=== PATIENT | male | born 1985 | race Caucasian/White ===

== ENCOUNTER 2018-12-31 17:36 | Emergency (ER) | payer OTHER ==
--- NOTE | 2018-12-31 17:59 | EDPHY ---
H & P Stated Complaint: Lightheaded today, friend measured BGL @340 Time Seen by Provider: 12/31/18 17:58 - Personal History Current Tetanus/Diphtheria Vaccine: Yes - Medical/Surgical History Hx Asthma: No Hx Chronic Respiratory Disease: No Hx Diabetes: No Hx Cardiac Disease: No Hx Renal Disease: No Hx Cirrhosis: No Hx Alcoholism: No Hx HIV/AIDS: No Hx Splenectomy or Spleen Trauma: No Other PMH: tonsillectomy - Social History Smoking Status: Never smoked Constitutional: Initial Vital Signs Temperature (C) 37.1 C 12/31/18 17:50 Heart Rate 96 12/31/18 17:50 Respiratory Rate 18 12/31/18 17:50 Blood Pressure 135/91 H 12/31/18 17:50 O2 Sat (%) 95 12/31/18 17:50 O2 Delivery Mode Room Air Allergies/Adverse Reactions: amoxicillin Allergy (Verified 12/31/18 17:50) Home Medications: Medication Instructions Recorded metFORMIN SR [Glucophage XR 500 mg 500 mg PO DAILY@1800 #30 tab.sr 12/31/18 (*)] Medical Decision Making ED Course/Re-evaluation: CHIEF COMPLAINT: Dizzy HISTORY OF PRESENT ILLNESS: The patient is a 33 y/o male complaining of feeling lightheaded and dizzy today. Earlier this week he was on a plane for 30 hours as he was travelling home from [facility]. After the flight he developed back and sternal pain. Today he developed worsening lightheadedness. During the day he took a random blood sugar with a reading of 340. While driving home today he felt like he was going pass out, so he decided to present to the emergency department. No fever, headache, body aches, lightheadedness, chest pain, heart palpitations, shortness of breath, cough, abdominal pain, urinary or bowel complaints, numbness, paresthesias. REVIEW OF SYSTEMS: A comprehensive 10 system review of systems is otherwise negative aside from elements mentioned in the history of present illness and medical decision making. PHYSICAL EXAM: HR, BP, O2 Sat, RR. Temp noted General Appearance: Obese, alert, well hydrated, appropriate, and non-toxic appearing. Head: Atraumatic without scalp tenderness or obvious injury Eyes: Pupils equal, round, reactive to light and accommodation, EOMI, no trauma , no injection. Ears: Clear bilaterally, no perforation, normal landmarks Nose: Atraumatic, no rhinorrhea, clear. Throat: There is no erythema or exudates, no lesions, normal tonsils, mucus membranes moist. Neck: Supple, 2+ carotid upstroke, nontender, no lymphadenopathy. Respiratory: No retractions, no distress, no wheezes, and no accessory muscle use. Lungs are clear to auscultation bilaterally. Cardiovascular: Regular rate and rhythm, no murmurs, rubs, or gallops. Bilateral carotid, radial, dorsalis pedis, and posterior tibial pulses intact. Good capillary refill all extremities. Gastrointestinal: Abdomen is soft, nontender, non-distended, no masses, no rebound, no guarding, no peritoneal signs. Musculoskeletal: Normal active ROM of all extremities, atraumatic. Neurological: Alert, appropriate, and interactive. The patient has normal DTRs and non-focal cranial nerves, motor, sensory, and cerebellar exam. Skin: No rashes, good turgor, no nodules on palpation. Past medical history: Denies Past surgical history: Tonsillectomy Family history: Father has diabetes Social history: Employed, lives in [place], [facility] DIAGNOSTICS/PROCEDURES/CRITICAL CARE TIME: Not indicated. DIFFERENTIAL DIAGNOSIS: The differential diagnosis for the patient's dizziness included but was not limited to new-onset type 2 diabetes, peripheral and central causes of vertigo, orthostatic causes including dehydration, cardiogenic and neurogenic causes, and blood loss. MEDICAL DECISION MAKING: The patient is a 33 y/o male presenting with feeling lightheaded and dizzy today. Earlier this week he was on a plane for 30 hours as he was travelling home from [facility]. After the flight he developed back and sternal pain. Today he developed worsening lightheadedness. During the day he took a random blood sugar with a reading of 340. On exam the patient is obese but has an otherwise normal physical exam. I am concerned he is a new-onset diabetic as he had a random blood sugar over 200. Labs ordered. 184: Patient's labs reveal a BGL of 237. His D-dimer and other labs are unremarkable. Patient has new onset type 2 diabetes. I have prescribed him Metformin for this. 1849: Reassessed patient and discussed laboratory findings. I have prescribed him Metformin; his first dose was given prior to discharge. Return precautions provided; patient is comfortable with this plan. - Data Points Laboratory Results: Laboratory Results 12/31/18 18:07 04/03/19 18:07 12/31/18 12/31/18 12/31/18 18:07 18:07 18:07 WBC 10.75 10^3/uL H 10^3/uL (3.80-9.50) RBC 5.13 10^6/uL 10^6/uL (4.40-6.38) Hgb 16.7 g/dL g/dL (13.7-17.5) Hct 46.8 % % (40.0-51.0) MCV 91.2 fL fL (81.5-99.8) MCH 32.6 pg pg (27.9-34.1) MCHC 35.7 g/dL g/dL (32.4-36.7) RDW 12.0 % % (11.5-15.2) Plt Count 267 10^3/uL 10^3/uL (150-400) MPV 10.2 fL fL (8.7-11.7) Neut % (Auto) 67.4 % % (39.3-74.2) Lymph % (Auto) 20.9 % % (15.0-45.0) [place] % (Auto) 8.4 % % (4.5-13.0) Eos % (Auto) 1.8 % % (0.6-7.6) Baso % (Auto) 0.7 % % (0.3-1.7) Nucleat RBC Rel Count 0.0 % % (0.0-0.2) Absolute Neuts (auto) 7.24 10^3/uL H 10^3/uL (1.70-6.50) Absolute Lymphs (auto) 2.25 10^3/uL 10^3/uL (1.00-3.00) Absolute Monos (auto) 0.90 10^3/uL H 10^3/uL (0.30-0.80) Absolute Eos (auto) 0.19 10^3/uL 10^3/uL (0.03-0.40) Absolute Basos (auto) 0.08 10^3/uL 10^3/uL (0.02-0.10) Absolute Nucleated RBC 0.00 10^3/uL 10^3/uL (0-0.01) Immature Gran % 0.8 % % (0.0-1.1) Immature Gran # 0.09 10^3/uL 10^3/uL (0.00-0.10) D-Dimer 0.31 ug/mLFEU ug/mLFEU (0.00-0.50) Sodium 134 mEq/L L mEq/L (135-145) Potassium 4.1 mEq/L mEq/L (3.5-5.2) Chloride 100 mEq/L mEq/L (97-110) Carbon Dioxide 24 mEq/l mEq/l (22-31) Anion Gap 10 mEq/L mEq/L (6-14) BUN 13 mg/dL mg/dL (7-23) Creatinine 0.7 mg/dL mg/dL (0.7-1.3) Estimated GFR > 60 Glucose 237 mg/dL H mg/dL (70-100) Calcium 9.0 mg/dL mg/dL (8.5-10.4) Total Bilirubin 1.1 mg/dL mg/dL (0.1-1.4) Conjugated Bilirubin 0.5 mg/dL mg/dL (0.0-0.5) Unconjugated Bilirubin 0.6 mg/dL mg/dL (0.0-1.1) AST 34 IU/L IU/L (17-59) ALT 54 IU/L IU/L (21-72) Alkaline Phosphatase 100 IU/L IU/L (38-126) Total Protein 7.9 g/dL g/dL (6.3-8.2) Albumin 4.7 g/dL g/dL (3.5-5.0) Lipase 75 IU/L IU/L (23-300) Departure - Departure Disposition: Home, Routine, Self-Care Clinical Impression: Hyperglycemia, Diabetes mellitus, new onset Condition: Good Instructions: Metformin (By mouth), Type 2 Diabetes in Adults: New Diagnosis ( ED), Diabetes and Exercise (ED) Additional Instructions: 1. Take Metformin as prescribed for your new onset Type 2 diabetes. 2. Follow-up with your primary doctor within 72 hours. 3. Return to the Emergency Department for fever, chest pain, shortness of breath , increasing pain or other worsening of condition. Referrals: STEVE SANCHEZ [Primary Care Provider] - As per Instructions Prescriptions: metFORMIN SR [Glucophage XR 500 mg (*)] 500 mg PO DAILY@1800 #30 tab.sr Report Scribed for: Rajan Wakefield Report Scribed by: Tesha Cerda Date of Report: 12/31/18 Time of Report: 18:00
[2018-12-31 18:16] LABS: PLATELET COUNT 267 10^3/uL (150-400)
[2018-12-31 18:36] VITALS: BP 145/110
[2018-12-31] MEDS ORDERED: metFORMIN SR 500 MG TAB PO ONE (18:48)
== END 2018-12-31 19:19 | disposition home or self-care (01) ==
DX: R73.9 Hyperglycemia, unspecified (principal)